=== PATIENT | male | born 1970 | race Caucasian/White ===

== ENCOUNTER 2017-05-17 21:33 | Inpatient (IN) | payer SELFPAY ==
[~2017-05-17] VITALS: Ht 167.6 cm; Wt 73.4 kg
[2017-05-17] MEDS ORDERED: ETOMIDATE (2MG/ML) 20ML VIAL IV ONE (21:34)
[2017-05-17] MEDS ORDERED: SUCCINYLCHOLINE CHLORIDE 20 MG/ML 10ML VIAL IV ONE ×3 (21:35→22:15)
[2017-05-17] MEDS ORDERED: MIDAZOLAM DRIP 50 mg/50mL 50 ML IV STA (22:01)
[2017-05-17] MEDS ORDERED: ETOMIDATE (2MG/ML) 20ML VIAL IV STA (22:02)
[2017-05-17 22:04] VITALS: BP 238/139
[2017-05-17] MEDS ORDERED: PROPOFOL 100 ML IV ONE (22:13)
[2017-05-17] MEDS: PROPOFOL 100 ML IV SCH (22:30)
[2017-05-17 22:31] LABS: Basophils # (auto) 0.1 uL; Basophils % (auto) 0.6 % (0.0-2.0); CONDITION Y; DEFINITIVE SEE PRINTOUT; Eosinophils # (auto) 0.2 uL; Eosinophils % (auto) 1.2 % (0.0-7.0); Hematocrit 40.7 % (41.0-53.0); Hemoglobin 13.7 g/dL (13.5-17.5); Lymphocytes # (auto) 6.7 uL; Lymphocytes % (auto) 39.3 % (10.0-50.0); Mean Corpuscular Hemoglobin 30.8 pg (28.0-32.0); Mean Corpuscular Hgb Conc. 33.8 g/dL (32.0-36.0); Mean Corpuscular Volume 91.2 fL (80.0-100.0); Mean Platelet Volume 8.2 fL (7.4-10.4); Monocytes % (auto) 5.7 % (0.0-12.0); Neutrophils # (auto) 9.1 uL; Neutrophils % (auto) 53.2 % (37.0-80.0); Platelet Count (auto) 333 10^3/uL (140-450); Red Cell Distribution Width 12.8 % (11.6-16.0); White Blood Cell 17.1 10^3/uL (4.4-10.8)
[2017-05-17 22:37] LABS: Albumin 3.8 g/dL (3.4-5.0); BUN/Creatinine Ratio 8.3; Calcium 8.2 mg/dL (8.5-10.1); Potassium 3.4 mmol/L (3.5-5.1)
[2017-05-17 22:40] LABS: Bilirubin, Total 0.3 mg/dL (0.2-1.0); Total Protein 7.9 g/dL (6.4-8.2)
[2017-05-17 23:02] LABS: Allen Test Yes; Base Excess -9.3 mmol/L (-2.0-2.0); Blood 02Sat 98.5 % (96-100); Blood COHb 0.3 % (0.5-1.5); Blood MetHb 0.5 % (0.0-1.5); HHb 1.5 % (0.0-5.0); MODE VENT - A/C; O2Hb 97.7 % (94.0-97.0); PCO2 38.6 mmHg (35.0-45.0); PCO2(T) 38.6 mmHg (35.0-45.0); PO2 214.2 mmHg (80.0-100.0); PO2(T) 214.2 mmHg (80.0-100.0); Sample Type Arterial; pH 7.262 (7.350-7.450)
[2017-05-18] VITALS (74 sets, daily range): BP systolic 77–182; BP diastolic 31–117
[2017-05-18] MEDS: PROPOFOL 100 ML IV SCH ×2 (00:08→07:00)
[2017-05-18] MEDS: MIDAZOLAM DRIP 50 mg/50mL 50 ML IV SCH ×2 (00:37→07:00)
[2017-05-18] MEDS ORDERED: DEXTROSE 50% SYRINGE 50 ML IV ONE (00:49)
[2017-05-18] MEDS ORDERED: DEXTROSE (50%) 50ML SYRG IV ONE (01:00)
[2017-05-18] MEDS ORDERED: D5W 5% 1,000 ML IV ONE (01:15)
[2017-05-18] MEDS ORDERED: DEXTROSE 10% 1,000 ML IV ONE (01:15)
[2017-05-18] MEDS ORDERED: cefTRIAXone 1GM/50ML D5W 100 ML IV ONE (02:42)
[2017-05-18] MEDS ORDERED: CEFTRIAXONE SODIUM 2 GM in D5W 5% 50 ML IV ONE (02:45)
[2017-05-18] MEDS ORDERED: LORazepam 2MG/ML-1ML VIAL IV ONE (02:45)
[2017-05-18] MEDS ORDERED: ONDANSETRON HCL 4 MG/2 ML VIAL IV PRN (03:00)
[2017-05-18] MEDS ORDERED: ACETAMINOPHEN 500 MG TAB PO PRN (03:00)
[2017-05-18] MEDS ORDERED: LORazepam 2MG/ML-1ML VIAL IV PRN ×2 (03:00→03:45)
[2017-05-18] MEDS ORDERED: NITROGLYCERIN 0.4 MG SL TAB SL PRN (03:00)
[2017-05-18] MEDS ORDERED: MORPHINE SULF INJ 2 MG/ML SYRINGE 1ML IV PRN ×2 (03:00)
[2017-05-18] MEDS ORDERED: LEVETIRACETAM INJ 500 MG in SODIUM CHL 0.9% 100 ML IV ONE ×2 (03:30→03:45)
[2017-05-18] MEDS ORDERED: AZITHROMYCIN 500MG/D5W 250ML 250 ML IV ONE (03:45)
[2017-05-18] MEDS ORDERED: POTASSIUM CHL 10% (20 MEQ/15ML) ORAL SOLN GT ONE (03:45)
[2017-05-18] MEDS ORDERED: DEXTROSE (50%) 50ML SYRG IV PRN ×3 (04:00→12:15)
[2017-05-18] MEDS: ACCU-CHEK COMFORT CURVE STRIP VI SCH ×5 (04:00→20:16)
[2017-05-18] MEDS ORDERED: LEVETIRACETAM 500 MG/5ML INJ IV ONE (04:17)
[2017-05-18] MEDS ORDERED: chlorproMAZINE HCL 25 MG TAB PO PRN (05:00)
[2017-05-18 05:23] LABS: Urine Bilirubin Negative (Negative); Urine Color Yellow (Yellow); Urine Glucose Normal (Normal); Urine Ketone Negative (Negative); Urine Nitrite Negative (Negative); Urine RBC 51 /hpf (0 - 3); Urine Urobilinogen Normal (Negative)
[2017-05-18 05:30] LABS: Urine Blood 1+ /uL (Negative)
[2017-05-18 08:19] LABS: Allen Test Modified; Base Excess -6.3 mmol/L (-2.0-2.0); Blood 02Sat 94.4 % (96-100); Blood COHb 0.8 % (0.5-1.5); Blood MetHb 0.4 % (0.0-1.5); HCO3 18.1 mmol/L (22-26.0); HHb 5.5 % (0.0-5.0); MODE VENT - A/C; O2Hb 93.3 % (94.0-97.0); PCO2 32.9 mmHg (35.0-45.0); PCO2(T) 34.7 mmHg (35.0-45.0); PO2 77.3 mmHg (80.0-100.0); PO2(T) 83.7 mmHg (80.0-100.0); Sample Type Arterial; Spont Vt 555; pH 7.359 (7.350-7.450)
[2017-05-18] MEDS: PANTOPRAZOLE 40 MG/10 ML VIAL IV SCH (10:20)
[2017-05-18 10:22] LABS: BUN/Creatinine Ratio 9.3; Calcium 7.6 mg/dL (8.5-10.1); Potassium 4.3 mmol/L (3.5-5.1)
[2017-05-18] MEDS ORDERED: cefTRIAXone 1GM/50ML D5W 50 ML IV ONE (12:15)
[2017-05-18] MEDS: InsuLIN REG 1unit/0.01ml Soln (100units/ml) SC SCH ×3 (12:35→20:16)
[2017-05-18] MEDS ORDERED: INSU70IN3 SC (12:46)
[2017-05-18] MEDS ORDERED: INSDRIP IV (12:46)
[2017-05-18] MEDS: SODIUM CHLORIDE 0.9% 1,000 ML IV SCH (13:55)
[2017-05-18 15:06] LABS: Basophils # (auto) 0 uL; Basophils % (auto) 0.2 % (0.0-2.0); CONDITION Y; Eosinophils # (auto) 0 uL; Hematocrit 38.2 % (41.0-53.0); Hemoglobin 13.3 g/dL (13.5-17.5); Lymphocytes # (auto) 0.5 uL; Lymphocytes % (auto) 3.2 % (10.0-50.0); Mean Corpuscular Hemoglobin 30.9 pg (28.0-32.0); Mean Corpuscular Hgb Conc. 34.9 g/dL (32.0-36.0); Mean Corpuscular Volume 88.6 fL (80.0-100.0); Mean Platelet Volume 7.8 fL (7.4-10.4); Monocytes # (auto) 0.3 uL; Monocytes % (auto) 1.9 % (0.0-12.0); Neutrophils # (auto) 15.6 uL; Neutrophils % (auto) 94.7 % (37.0-80.0); Platelet Count (auto) 217 10^3/uL (140-450); Red Cell Distribution Width 12.6 % (11.6-16.0); SUSPECT SEE PRINTOUT; White Blood Cell 16.5 10^3/uL (4.4-10.8)
[2017-05-18] MEDS ORDERED: InsuLIN REG 1unit/0.01ml Soln (100units/ml) SC SCH (16:00)
[2017-05-18] MEDS ORDERED: ACCU-CHEK COMFORT CURVE STRIP VI SCH (16:00)
[2017-05-18 16:55] LABS: Allen Test Modified; Base Excess -5.7 mmol/L (-2.0-2.0); Blood 02Sat 96.1 % (96-100); Blood MetHb 0.4 % (0.0-1.5); HCO3 18.1 mmol/L (22-26.0); HHb 3.8 % (0.0-5.0); MODE VENT - CPAP; O2Hb 94.8 % (94.0-97.0); PCO2(T) 32.4 mmHg (35.0-45.0); PO2 86.1 mmHg (80.0-100.0); PO2(T) 91.8 mmHg (80.0-100.0); Pressure Support 8; Sample Type Arterial; Spont Vt 542; pH 7.385 (7.350-7.450)
[2017-05-18] MEDS ORDERED: EPINEPHrine HCL 0.5 ML NEB NEB PRN (17:15)
[2017-05-19] VITALS (29 sets, daily range): BP systolic 118–189; BP diastolic 56–101
[2017-05-19] MEDS: SODIUM CHLORIDE 0.9% 1,000 ML IV SCH ×2 (02:55→10:40)
[2017-05-19 03:46] LABS: Basophils # (auto) 0.1 uL; Basophils % (auto) 0.4 % (0.0-2.0); CONDITION Y; Eosinophils # (auto) 0 uL; Eosinophils % (auto) 0.1 % (0.0-7.0); Hematocrit 33.7 % (41.0-53.0); Hemoglobin 11.8 g/dL (13.5-17.5); Lymphocytes # (auto) 0.9 uL; Lymphocytes % (auto) 6.3 % (10.0-50.0); Mean Corpuscular Hemoglobin 30.9 pg (28.0-32.0); Mean Corpuscular Volume 88.3 fL (80.0-100.0); Monocytes # (auto) 0.5 uL; Monocytes % (auto) 3.2 % (0.0-12.0); Neutrophils # (auto) 13.3 uL; Platelet Count (auto) 237 10^3/uL (140-450); Red Cell Distribution Width 12.8 % (11.6-16.0); White Blood Cell 14.8 10^3/uL (4.4-10.8)
[2017-05-19 04:10] LABS: Albumin 2.9 g/dL (3.4-5.0); BUN/Creatinine Ratio 10.5; Bilirubin, Total 0.5 mg/dL (0.2-1.0); Calcium 8.1 mg/dL (8.5-10.1); Magnesium 2.3 mg/dL (1.6-2.6); Potassium 3.9 mmol/L (3.5-5.1); Total Protein 6.3 g/dL (6.4-8.2)
[2017-05-19] MEDS: ACCU-CHEK COMFORT CURVE STRIP VI SCH ×7 (04:18→23:58)
[2017-05-19] MEDS: InsuLIN REG 1unit/0.01ml Soln (100units/ml) SC SCH ×7 (04:18→23:59)
[2017-05-19] MEDS: cefTRIAXone 1GM/50ML D5W 50 ML IV SCH (07:45)
[2017-05-19] MEDS ORDERED: cefTRIAXone 1GM/50ML D5W 50 ML IV SCH (09:00)
[2017-05-19] MEDS: HYDROcodone-ACET 5/325MG TAB PO PRN ×3 (09:18→16:34)
[2017-05-19] MEDS: AZITHROMYCIN 500MG/D5W 250ML 250 ML IV SCH (09:27)
[2017-05-19] MEDS: PANTOPRAZOLE 40 MG/10 ML VIAL IV SCH (10:00)
[2017-05-19 10:07] LABS: Allen Test Yes; Base Excess -1.8 mmol/L (-2.0-2.0); Blood 02Sat 97.3 % (96-100); Blood COHb 0.7 % (0.5-1.5); Blood MetHb 0.5 % (0.0-1.5); HCO3 22.8 mmol/L (22-26.0); HHb 2.7 % (0.0-5.0); MODE NASAL CANNULA; O2Hb 96.1 % (94.0-97.0); PCO2 38.2 mmHg (35.0-45.0); PCO2(T) 38.2 mmHg (35.0-45.0); PO2 102.4 mmHg (80.0-100.0); PO2(T) 102.4 mmHg (80.0-100.0); Sample Type Arterial; pH 7.394 (7.350-7.450)
[2017-05-19 12:09] LABS: Phosphorus 2.6 mg/dL (2.5-4.90)
[2017-05-19 12:37] LABS: B-Type Natriuretic Peptide 46.82 pg/mL (0-100)
[2017-05-19 13:05] LABS: Temperature: 22.4 C (20.0-25.0)
[2017-05-19] MEDS ORDERED: METOPROLOL TARTRATE 25 MG TAB ONE (16:52)
[2017-05-19] MEDS ORDERED: METOPROLOL TARTRATE 25 MG TAB PO ONE (17:00)
[2017-05-19] MEDS: METOPROLOL TARTRATE 25 MG TAB PO SCH (21:53)
[2017-05-20] MEDS: ACCU-CHEK COMFORT CURVE STRIP VI SCH ×5 (03:36→22:29)
[2017-05-20] MEDS: InsuLIN REG 1unit/0.01ml Soln (100units/ml) SC SCH ×5 (03:37→22:00)
[2017-05-20] MEDS: HYDROcodone-ACET 5/325MG TAB PO PRN ×4 (03:38→23:34)
[2017-05-20 06:00] VITALS: BP 155/85
[2017-05-20 06:07] LABS: Basophils # (auto) 0.1 uL; Basophils % (auto) 0.6 % (0.0-2.0); CONDITION Y; Eosinophils # (auto) 0.2 uL; Eosinophils % (auto) 1.8 % (0.0-7.0); Hematocrit 32.3 % (41.0-53.0); Lymphocytes # (auto) 1.1 uL; Mean Corpuscular Hemoglobin 30.4 pg (28.0-32.0); Mean Corpuscular Hgb Conc. 34.1 g/dL (32.0-36.0); Mean Corpuscular Volume 89.1 fL (80.0-100.0); Mean Platelet Volume 8.1 fL (7.4-10.4); Monocytes # (auto) 0.5 uL; Monocytes % (auto) 5.1 % (0.0-12.0); Neutrophils % (auto) 81.5 % (37.0-80.0); Platelet Count (auto) 230 10^3/uL (140-450); Red Cell Distribution Width 12.6 % (11.6-16.0); White Blood Cell 9.8 10^3/uL (4.4-10.8)
[2017-05-20 06:40] LABS: BUN/Creatinine Ratio 12.5
[2017-05-20 08:00] VITALS: BP 159/91
[2017-05-20] MEDS: SODIUM CHLORIDE 0.9% 1,000 ML IV SCH (08:00)
[2017-05-20 08:51] VITALS: BP 159/91
[2017-05-20] MEDS: cefTRIAXone 1GM/50ML D5W 50 ML IV SCH (09:01)
[2017-05-20] MEDS: PANTOPRAZOLE 40 MG/10 ML VIAL IV SCH (09:40)
[2017-05-20] MEDS: AZITHROMYCIN 500MG/D5W 250ML 250 ML IV SCH (09:42)
[2017-05-20] MEDS: METOPROLOL TARTRATE 25 MG TAB PO SCH ×2 (09:44→22:29)
[2017-05-20 12:59] VITALS: BP 157/84
[2017-05-20] MEDS ORDERED: DEXTROSE (50%) 50ML SYRG IV PRN (13:15)
[2017-05-20 17:00] VITALS: BP 150/70
[2017-05-20] MEDS: INSULIN NPH Isophane (HUMAN) 1unit/0.01ml Susp(100units/ml) SC SCH (18:16)
[2017-05-20 22:00] VITALS: BP 138/72
[2017-05-21 05:00] VITALS: BP 141/72
[2017-05-21] MEDS: HYDROcodone-ACET 5/325MG TAB PO PRN ×3 (06:27→20:49)
[2017-05-21] MEDS: ACCU-CHEK COMFORT CURVE STRIP VI SCH ×4 (06:27→22:00)
[2017-05-21] MEDS: InsuLIN REG 1unit/0.01ml Soln (100units/ml) SC SCH ×4 (06:28→22:00)
[2017-05-21] MEDS: INSULIN NPH Isophane (HUMAN) 1unit/0.01ml Susp(100units/ml) SC SCH ×2 (06:28→18:00)
[2017-05-21 06:37] LABS: BUN/Creatinine Ratio 12.2; Potassium 3.9 mmol/L (3.5-5.1)
[2017-05-21] MEDS: cefTRIAXone 1GM/50ML D5W 50 ML IV SCH (08:50)
[2017-05-21 09:00] VITALS: BP 139/63
[2017-05-21] MEDS: AZITHROMYCIN 500MG/D5W 250ML 250 ML IV SCH (10:31)
[2017-05-21] MEDS: METOPROLOL TARTRATE 25 MG TAB PO SCH ×2 (10:33→23:09)
[2017-05-21 13:00] VITALS: BP 179/79
[2017-05-21 17:00] VITALS: BP 168/80
[2017-05-21 22:06] VITALS: BP 140/75
[2017-05-22] VITALS (7 sets, daily range): BP systolic 158–178; BP diastolic 83–91
[2017-05-22] MEDS: HYDROcodone-ACET 5/325MG TAB PO PRN ×4 (03:50→23:26)
[2017-05-22] MEDS ORDERED: METOPROLOL TARTRATE 25 MG TAB PO ONE ×2 (05:15→16:28)
[2017-05-22] MEDS: ACCU-CHEK COMFORT CURVE STRIP VI SCH ×4 (07:00→21:34)
[2017-05-22] MEDS: INSULIN NPH Isophane (HUMAN) 1unit/0.01ml Susp(100units/ml) SC SCH ×2 (07:00→17:40)
[2017-05-22] MEDS: InsuLIN REG 1unit/0.01ml Soln (100units/ml) SC SCH ×4 (07:00→21:44)
[2017-05-22] MEDS: METOPROLOL TARTRATE 25 MG TAB PO SCH ×2 (09:45→21:40)
[2017-05-22] MEDS: cefTRIAXone 1GM/50ML D5W 50 ML IV SCH (09:45)
[2017-05-22] MEDS: AZITHROMYCIN 500MG/D5W 250ML 250 ML IV SCH (11:02)
[2017-05-22 12:07] LABS: Vitamin D 25-Hydroxy 8.8 ng/mL (.); Vitamin D-2 25-Hydroxy <1.0 ng/mL (.)
[2017-05-22] MEDS ORDERED: amLODIPine BESYLATE 5 MG TAB PO SCH (13:15)
[2017-05-22] MEDS ORDERED: HYDR-4663 PO (14:16)
[2017-05-22] MEDS ORDERED: AML5T PO (14:16)
[2017-05-22] MEDS ORDERED: LEVO750T2 PO (14:16)
[2017-05-22] MEDS ORDERED: LACTULOSE 20Gm/30ML SOLN PO ONE (15:00)
[2017-05-22] MEDS ORDERED: amLODIPine BESYLATE 5 MG TAB PO ONE (15:00)
[2017-05-23] MEDS: HYDROcodone-ACET 5/325MG TAB PO PRN ×3 (05:07→12:42)
[2017-05-23 05:11] VITALS: BP 157/82
[2017-05-23] MEDS: InsuLIN REG 1unit/0.01ml Soln (100units/ml) SC SCH ×3 (06:11→17:00)
[2017-05-23] MEDS: ACCU-CHEK COMFORT CURVE STRIP VI SCH ×3 (06:12→17:00)
[2017-05-23] MEDS: INSULIN NPH Isophane (HUMAN) 1unit/0.01ml Susp(100units/ml) SC SCH ×2 (07:18→18:00)
[2017-05-23 08:00] VITALS: BP 171/87
[2017-05-23 09:00] VITALS: BP 171/87
[2017-05-23] MEDS ORDERED: METOPROLOL TARTRATE 25 MG TAB PO ONE (09:45)
[2017-05-23] MEDS ORDERED: METOPROLOL TARTRATE 25 MG TAB PO SCH ×2 (10:00→22:00)
[2017-05-23] MEDS ORDERED: amLODIPine BESYLATE 5 MG TAB PO SCH (10:00)
[2017-05-23] MEDS ORDERED: LORazepam 0.5 MG TAB PO ONE (12:19)
[2017-05-23] MEDS ORDERED: MET25T PO (12:36)
[2017-05-23 13:00] VITALS: BP 172/81
[2017-05-23 15:14] VITALS: BP 172/84
== END 2017-05-23 17:45 | disposition home health service (06) | DRG 871 ==
LOC: EDBD 21:33 → ER 21:44 → ICU WEST 21:45 → TELE-WESTW 05-19 21:20
PROVIDERS: ADMIT Nurse Practitioner Family; ATTEND Internal Medicine
PROC: 5A1935Z Respiratory Ventilation, Less than 24 Consecutive Hours (ICD-10-PCS; principal; 2017-05-17)
PROC: 0BH17EZ Insertion of Endotracheal Airway into Trachea, Via Natural or Artificial Opening (ICD-10-PCS; 2017-05-17)
DX: A41.9 Sepsis, unspecified organism (principal); G93.41 Metabolic encephalopathy; J15.211 Pneumonia due to Methicillin susceptible Staphylococcus aureus; N17.0 Acute kidney failure with tubular necrosis; J96.00 Acute respiratory failure, unspecified whether with hypoxia or hypercapnia; G40.501 Epileptic seizures related to external causes, not intractable, with status epilepticus; S32.059A Unspecified fracture of fifth lumbar vertebra, initial encounter for closed fracture; S32.10XA Unspecified fracture of sacrum, initial encounter for closed fracture; N18.4 Chronic kidney disease, stage 4 (severe); Z99.11 Dependence on respirator [ventilator] status; E09.649 Drug or chemical induced diabetes mellitus with hypoglycemia without coma; E10.21 Type 1 diabetes mellitus with diabetic nephropathy; E87.6 Hypokalemia; T38.3X5A Adverse effect of insulin and oral hypoglycemic [antidiabetic] drugs, initial encounter; E10.22 Type 1 diabetes mellitus with diabetic chronic kidney disease; I12.9 Hypertensive chronic kidney disease with stage 1 through stage 4 chronic kidney disease, or unspecified chronic kidney disease; F41.9 Anxiety disorder, unspecified; X58.XXXA Exposure to other specified factors, initial encounter; Y93.89 Activity, other specified; Y92.89 Other specified places as the place of occurrence of the external cause; Z79.4 Long term (current) use of insulin; Y99.8 Other external cause status
CPT/HCPCS: 31500; 36415; 36600; 51702; 70450; 71010; 72131; 72192; 76775; 80048; 80053; 80061; 80307; 81001; 82306; 82550; 82570; 82805; 82962; 83036; 83735; 83880; 83970; 84100; 84156; 84300; 84550; 85025; 87040; 87070; 87077; 87081; 87186; 87205; 93005; 94003; 95819; 96374; 96375; 96376; 97110; 97116; 97163; 97530; 99291; C9113; J0330; J0696; J1815; J2250; J2405; J2704; J7060; Q0161